=== PATIENT | female | born 1965 | race Asian ===

== ENCOUNTER 2020-03-08 06:10 | Day surgery (SDC) | payer BC, SELFPAY ==
[~2020-03-08] VITALS: Ht 157.5 cm; Wt 59.0 kg
[2020-03-08] MEDS ORDERED: SIMETHICONE 40 MG/0.6 ML ML ONE (06:55)
[2020-03-08] MEDS: MIDAZOLAM HCL 5 MG/5 ML VIAL ONE ×3 (07:48→07:52)
[2020-03-08] MEDS: fentaNYL CITRATE/PF 100 MCG/2 ML AMP ONE ×3 (07:48→07:52)
[2020-03-08 10:30] VITALS: BP_SYST 104
== END 2020-03-08 09:00 | disposition still patient (30) ==
LOC: SDS 06:10 → SMU 06:10 → SDS 09:00
PROVIDERS: ATTEND Internal Medicine
DX: R13.10 Dysphagia, unspecified (principal); K21.9 Gastro-esophageal reflux disease without esophagitis; K44.9 Diaphragmatic hernia without obstruction or gangrene; K29.50 Unspecified chronic gastritis without bleeding; Z90.710 Acquired absence of both cervix and uterus; Z20.828 Contact with and (suspected) exposure to other viral communicable diseases; Z79.899 Other long term (current) drug therapy
CPT/HCPCS: 36415; 43239; 87081; 88305; 88312; 88313; 99152; J2250; J3010; U0003